=== PATIENT | male | born 1985 | race Caucasian/White ===

== ENCOUNTER 2021-10-02 16:11 | Emergency (ER) | payer SELFPAY ==
[~2021-10-02] VITALS: Ht 167.6 cm; Wt 56.2 kg
[2021-10-02 16:44] VITALS: BP 123/76
--- NOTE | 2021-10-02 16:49 | NUR ---
PT TO [facility]
[2021-10-02 18:58] LABS: HEMATOCRIT 36.5 % (36-52); HEMOGLOBIN 12.3 g/dL (12.0-18.0); MEAN CORPUSCULAR HEMOGLOBIN 30 pg (27-31); MEAN CORPUSCULAR HGB CONC 34 g/dL (33-37); MEAN CORPUSCULAR VOLUME 87.7 fL (80-94); PLATELET COUNT (AUTO) 199 K/uL (140-450); RED BLOOD CELL COUNT(AUTO) 4.16 MIL/uL (4.20-6.10); RED CELL DISTRIBUTION WIDTH 13.8 % (11.6-13.7); WHITE BLOOD COUNT (AUTO) 24.4 K/uL (4.8-10.8)
--- NOTE | 2021-10-02 19:08 | NUR ---
Patient taken to Chair C.
[2021-10-02 19:21] LABS: ALBUMIN 3.1 g/dL (3.4-5.0); ANION GAP 10.6 (8-16); ASPARTATE AMINOTRANSFERASE 20 U/L (15-37); CARBON DIOXIDE 29.5 mmol/L (21-32); CHLORIDE 92 mmol/L (98-107); CREATININE 0.9 mg/dL (0.6-1.3); GFR ARICAN-AMERICAN 123 mL/min (>90); GLUCOSE 123 mg/dL (74-106); POTASSIUM 4.1 mmol/L (3.5-5.1); SODIUM SERUM 128 mmol/L (136-145); TOTAL BILIRUBIN 0.6 mg/dL (0.0-1.0); UREA NITROGEN, BLOOD 9 mg/dL (7-18)
[2021-10-02 19:35] LABS: LYMPHOCYTES % (MANUAL) 7 % (20-46); MONOCYTES % (MANUAL) 6 % (5-12); PROMYELOCYTES % 1 % (0-0)
[2021-10-02] MEDS ORDERED: NACL 0.9% 1,000 ML IV SCH (19:55)
--- NOTE | 2021-10-02 20:34 | NUR ---
GHANSHYAM VARGAS examining patient.
--- NOTE | 2021-10-02 21:10 | NUR ---
Patient returned back from CT scan.
--- NOTE | 2021-10-02 21:22 | NUR ---
Urine sample collected and sent to lab.
--- NOTE | 2021-10-02 21:31 | NUR ---
Patient waited in Lobby.
[2021-10-02 22:11] LABS: APPEARANCE,URINE CLEAR (CLEAR); BILIRUBIN,URINE NEGATIVE (NEGATIVE); BLOOD, URINE TRACE-I (NEGATIVE); COLOR,URINE YELLOW (YELLOW); LEUKOCYTE ESTERASE ,URINE NEGATIVE (NEGATIVE); NITRITE, URINE NEGATIVE (NEGATIVE); UGLUCOSE NEGATIVE (NEGATIVE)
[2021-10-02 22:25] LABS: RBC,URINE 0-5 /HPF (0-5); WBC,URINE 0-5 /HPF (0-5)
[2021-10-02 23:50] VITALS: BP 135/62
--- NOTE | 2021-10-02 23:50 | NUR ---
Patient discharged with v/s stable. Written and verbal after care instructions given and explained. Patient verbalized understanding. Ambulatory with steady gait. All questions addressed prior to discharge. Advised to follow up with PMD.
--- NOTE | 2021-10-02 23:56 | NUR ---
Patient can not give his home address or family phone number.
--- NOTE | 2021-10-03 03:10 | NUR ---
Called [employer] and requested [facility] for patient.
== END 2021-10-02 23:50 | disposition home or self-care (01) ==
LOC: MED 16:11
DX: R10.9 Unspecified abdominal pain (principal); D72.829 Elevated white blood cell count, unspecified; F15.10 Other stimulant abuse, uncomplicated
CPT/HCPCS: 36415; 71045; 74176; 80053; 81001; 83690; 84484; 85025; 99285; G0482; 93005